=== PATIENT | male | born 1960 | race Caucasian/White ===

== ENCOUNTER 2019-02-25 03:05 | Inpatient (IN) ==
[2019-02-25] MEDS ORDERED: SOLU-MEDROL IV ONE (03:21)
[2019-02-25] MEDS ORDERED: ALBUTEROL NEB INH ONE (03:21)
--- NOTE | 2019-02-25 03:34 | PROVIDER DOCUMENTATION ---
HPI-General Adult - General Stated Complaint: RESP. DISTRESS Time Seen by Provider: 02/25/19 03:20 Source: patient, EMS Allergies/Adverse Reactions: Patient Allergies Allergy/AdvReac Type Severity Reaction Status Date / Time No Known Allergies Allergy Verified 01/16/18 07:36 Home Medications: Home Medication List Medication Instructions Recorded Confirmed Last Taken Type Folic Acid 1 mg PO DAILY #30 tab 02/19/18 Unknown Rx Multivit,Fe,Ca,FA & Min [Thera M 1 ea PO DAILY #30 tab 02/19/18 Unknown Rx Plus] Nicotine Patch [Nicoderm Patch] 21 mg TD DAILY #30 patch.td24 02/19/18 Unknown Rx Pantoprazole Sodium [Protonix] 40 mg PO ACB #30 tablet. 02/19/18 Unknown Rx Risperidone [Risperdal] 1 mg PO BID #60 tab 02/19/18 Unknown Rx Thiamine [Vitamin B-1] 100 mg PO DAILY #30 tab 02/19/18 Unknown Rx - History of Present Illness -Gen Adult Nature of Presenting Problems: 58 y/o M presents to the ED with EMS complaining of dyspnea. Pt is very poor historian and states "I don't know" to nearly all questions. Reports dyspnea with cough and some chest heaviness. Unknown if pt has had fever, emesis, and is unable to characterize how long he has had symptoms. EMS reported that pt was very wheezy on their arrival but that this improved with a nebulized tx. Review of Systems - Adult - REVIEW OF SYSTEMS - ADULT Constitutional: denies: chills, fever Eyes: reports: no symptoms reported Ears, Nose, Mouth & Throat: reports: no symptoms reported Cardiovascular: reports: chest pain Respiratory: reports: shortness of breath Gastrointestinal: reports: no symptoms reported Genitourinary: reports: no symptoms reported Musculoskeletal: reports: no symptoms reported Integumentary: reports: no symptoms reported Neurological: reports: no symptoms reported Psychiatric: reports: no symptoms reported Endocrine: reports: no symptoms reported Hematologic/Lymphatic: reports: no symptoms reported Allergic/Immunologic: reports: no symptoms reported All Other Systems: Reviewed and Negative Past History - Adult - PAST MEDICAL HISTORY-ADULT Review of Records: reports: Old Records Reviewed, Nursing Assessment Review, Medications Reviewed, Social history reviewed & non-contributory. Major Childhood Illnesses: reports: denies history Cardiovascular: reports: denies history Respiratory: reports: denies history Gastrointestinal: reports: denies history Obstetrical/Gynecological: reports: denies history Genitourinary: reports: denies history Musculoskeletal: reports: chronic pain Neurological: reports: denies history Psychiatric: reports: anxiety Endocrine/Immune: reports: denies history Other Conditions: reports: denies history - PRIOR SURGERIES/PROCEDURES Surgical/Procedure History: reports: tonsillectomy, appendectomy - IMMUNIZATION STATUS Childhood Immunizations: See Nurse Assessment Flu Vaccine: See Nurse Assessment - FAMILY HISTORY Family History: reviewed, not pertinent Physical Exam-General - PHYSICAL EXAM-ADULT Initial Vital Signs Reviewed: Yes - CONSTITUTIONAL General Appearance: alert, mild distress, other (chronically ill appearing) - EYES Eyes: PERRL/EOMI, pink conjunctivae - HEAD, EARS, NOSE, MOUTH & THROAT HENMT: normocephalic/atraumatic, moist mucous membranes, normal ENT inspection - NECK Neck: non-tender, full range of motion, supple - RESPIRATORY Respiratory: chest non-tender, normal breath sounds, wheezing (slight BL expiratory wheezes) - CARDIOVASCULAR Cardiovascular: normal peripheral pulses, regular rate, rhythm, no edema, no JVD - GASTROINTESTINAL (ABDOMEN) Abdominal Exam: non tender, soft - MUSCULOSKELETAL Back Exam: normal inspection, no CVA tenderness, no vertebral tenderness Extremity: normal range of motion, non-tender, no pedal edema - SKIN Integumentary: normal color, normal turgor, warm/dry - NEUROLOGIC Neurologic: grossly normal, no motor/sensory deficits - PSYCHIATRIC Psych/Mental Status: oriented x 3 Progress - PLAN OF CARE/RESULTS Progress/Plan/Lab Results: Orders Category Date Time Status IV Insertion ORDERED Care 02/25/19 03:21 Active Warming Carlin DIRECTED Care 02/25/19 03:21 Active CHEST-1 VIEW [RAD] Stat Exams 02/25/19 03:21 Ordered BASIC METABOLIC PANEL [CHEM] Stat Lab 02/25/19 03:21 Uncollected CBC WITH DIFF [HEME] Stat Lab 02/25/19 03:21 Uncollected PRO B-NATRIURETIC PEPTIDE Stat Lab 02/25/19 03:21 Uncollected TROPONIN T Stat Lab 02/25/19 03:21 Uncollected Albuterol [Albuterol Neb] Med 02/25/19 03:21 Discontinued 2.5 mg INH NOW ONE Methylprednisolone Sod Succ [Solu-Medrol] Med 02/25/19 03:21 Discontinued 125 mg IV NOW ONE Aerosol Treatments Routine Oth 02/25/19 03:21 Active Aerosol Treatments Stat Ot 02/25/19 03:21 Active dyspnea and chest pain, pt very cold on arrival with axillary temp of 93. Immediately warmed and will treat and further evaluate for causes including but not limited to ACS, bronchospasm, pna, ptx, chf, pe, Result Diagrams: 02/25/19 03:34 02/25/19 04:19 - REASSESSMENT Reassessment #1 Status: worsening (Soon after arrival pt became more confused, talking about smelling gas, and counting out numbness will further evaluate pt's AMS) Reassessment #2 Status: improving (confusion improving. elevated BNP with hyponatremia and acute renal failure. Gently hydrated with ns and treated with lasix and will admit for further evaluation and treatment. Discussed case with Dr. Sainz, hospitalist, who will see and admit pt.) - EKG 1 Time of EKG reading by physician:: 03:17 EKG Read and Signed by:: Aiyana Fairchild EKG Interpretation (*Must complete 3 of following elements*): Normal (Sinus Rhythm, rate 83, no acute st changes, normal axis and intervals) - XRAY 1 XRAY Study: Chest Impression: Normal - CT/MRI 1 CT Study: Head Impression: Normal Departure - Departure Date of Disposition Decision: 02/25/19 Time of Disposition Decision: 06:04 DIAGNOSIS: Hyponatremia Dyspnea Qualifiers: Dyspnea type: unspecified Qualified Code(s): R06.00 - Dyspnea, unspecified Altered mental state Qualifiers: Altered mental status type: unspecified Qualified Code(s): R41.82 - Altered mental status, unspecified Acute renal failure Qualifiers: Acute renal failure type: unspecified Qualified Code(s): N17.9 - Acute kidney failure, unspecified Congestive heart failure Qualifiers: Heart failure type: unspecified Heart failure chronicity: unspecified Qualified Code(s): I50.9 - Heart failure, unspecified Disposition: ADMITTED INPATIENT 09 Certified Medical Emergency: Emergent Condition: Fair Referrals and Follow-Ups: UNKNOWN, [Primary Care Provider] - - Critical Care Note This patient required my direct & personal management of CC.: No Attestation - Physician/ GABRIELLE Attestation Patient care was provided by Advanced Practice Provider:: No The physician spent face to face time with patient:: Yes Advanced Practice Provider documentation review:: Supervising physician onsite and consulted in the evaluation and care of this patient. The physician did have a face to face encounter with the patient.
[2019-02-25 03:57] LABS: BASO# 0.07 X1000 (0.0-0.2); BASO% 0.6 % (0.0-0.8); EOS# 0.01 X1000 (0.0-0.7); EOS% 0.1 % (0.0-10.0); HEMATOCRIT 45.1 % (42.0-52.0); HEMOGLOBIN 14.9 g/dL (14.0-18.0); LYMPH# 1.96 X1000 (1.2-3.4); LYMPH% 16.2 % (20.5-51.1); MCH 33.7 PG (27-31); MONO# 1.04 X1000 (0.11-0.59); MONO% 8.6 % (1.7-9.3); MPV 12.2 FL (7.4-10.4); NEUT% 74.5 % (42.2-75.2); PLT 151 X1000 (130-400); RBC 4.42 XMIL (4.7-6.1); RDW 14.5 % (11.5-14.5); WBC 12.08 X1000 (4.8-10.8)
[2019-02-25 04:47] LABS: UR AMPHETAMINES QUAL NONE DETECTED (NONE DETECT); UR BARBITUATES QUAL NONE DETECTED (NONE DETECT); UR BENZODIAZEPIN QUAL NONE DETECTED (NONE DETECT); UR CANNABINOIDS QUAL NONE DETECTED (NONE DETECT); UR COCAINE QUAL NONE DETECTED (NONE DETECT); UR METHADONE QUAL NONE DETECTED (NONE DETECT); UR OPIATES QUAL NONE DETECTED (NONE DETECT); UR OXYCODONE QUAL NONE DETECTED (NONE DETECT); UR PCP QUAL NONE DETECTED (NONE DETECT)
[2019-02-25 05:09] LABS: ALB/GLOB RATIO 0.9; ALBUMIN 3.8 g/dL (3.5-5.0); CALCIUM 9.4 mg/dL (8.8-10.2); CREATININE 2.2 mg/dL (0.7-1.2); POTASSIUM 4.8 mmol/L (3.5-5.1); TOTAL BILIRUBIN 3.58 mg/dL (0.20-1.00); TOTAL PROTEIN 7.8 g/dL (6.3-8.3)
[2019-02-25] MEDS ORDERED: LASIX IV ONE (05:15)
[2019-02-25] MEDS ORDERED: NS 500 ML IV ONE (05:16)
[2019-02-25 05:34] LABS: URINE SOURCE CATH
[2019-02-25 06:17] LABS: BILIRUBIN URINE SMALL (NEGATIVE); BLOOD URINE NEGATIVE (NEGATIVE); COLOR ORANGE; GLUCOSE URINE NEGATIVE (NEGATIVE); KETONE URINE TRACE mg/dL (NEGATIVE); LEUKOCYTES URINE NEGATIVE (NEGATIVE); NITRITE URINE NEGATIVE (NEGATIVE); PROTEIN URINE TRACE mg/dL (NEGATIVE); SP GRAVITY URINE 1.021; TURBIDITY URINE CLEAR (CLEAR); UROBILINOGEN URINE 6 mg/dL (NORMAL)
[2019-02-25 06:18] LABS: UR EPITHELIAL CELLS <10 /HPF (<10); URINE BACTERIA NEGATIVE /HPF; URINE RBC <10 /HPF (<10); URINE WBC <10 /HPF (<10)
--- NOTE | 2019-02-25 07:28 | Diag Imaging Result Doc PS360 ---
CHEST-1 VIEW - 02/25/2019 INDICATION: dyspnea COMPARISON: 01/27/2018 FINDINGS: There is some ill-defined infiltrate in the lingula. Heart size is normal. No pneumothorax or pleural effusion. IMPRESSION: Lingular infiltrate/pneumonia. Recommend treatment and follow-up until clear. Electronically signed by Edwin Layne 02/25/2019 7:25 AM
--- NOTE | 2019-02-25 07:31 | Diag Imaging Result Doc PS360 ---
CT HEAD W/O CONTRAST - 02/25/2019 INDICATION: AMS COMPARISON: 02/17/2018 FINDINGS: There is a stable old lacunar in the central rich. The ventricles and sulci are otherwise normal in size and contour. No intracranial mass or hemorrhage. The skull is intact. The sinuses are clear. IMPRESSION: No acute disease or change from prior. This exam was performed using automated exposure control, adjustment of mA or kV according to patient size, and/or use of iterative reconstruction technique Electronically signed by Edwin Layne 02/25/2019 7:28 AM
[2019-02-25] MEDS ORDERED: EPINEPHRINE SYRINGE ONE (07:40)
[2019-02-25] MEDS ORDERED: ATROPINE SYRINGE ONE (07:40)
[2019-02-25] MEDS ORDERED: NS ONE (07:40)
[2019-02-25] MEDS ORDERED: NS 1,000 ML IV SCH ×2 (07:45→08:00)
[2019-02-25] MEDS ORDERED: ROCEPHIN 1 GM in NS 50 ML IV SCH (07:45)
[2019-02-25] MEDS ORDERED: AMIDATE ONE (07:55)
[2019-02-25] MEDS ORDERED: QUELICIN ONE (07:55)
[2019-02-25] MEDS ORDERED: MAXIPIME 2 GM in NS 100 ML IV ONE (08:00)
[2019-02-25] MEDS ORDERED: VANCOMYCIN IV PER PHARMACY MISC SCH (08:00)
[2019-02-25] MEDS ORDERED: EPINEPHRINE 4 MG in NS 250 ML IV SCH ×2 (08:15→09:00)
[2019-02-25] MEDS ORDERED: DUONEB (A & A) INH PRN (08:21)
[2019-02-25] MEDS ORDERED: LEVOPHED 8 MG in D5 1/2 NS 250 ML IV SCH ×2 (08:21→09:30)
[2019-02-25] MEDS ORDERED: DOPAMINE 800 MG/D5W 800 MG/500 ML IV.SOLN IV SCH (08:21)
--- NOTE | 2019-02-25 08:25 | Diag Imaging Result Doc PS360 ---
CHEST-PORTABLE - 02/25/2019 8:17 AM INDICATION: TUBE PLACEMENT COMPARISON: 3:43 AM FINDINGS: There is an endotracheal tube in good position at T4. Lung volumes are lower. There is worsening infiltrate in the lingula. There is also new infiltrate in the right lung base. Pulmonary vascularity is distended. Heart size remains top normal. IMPRESSION: Good endotracheal tube placement. New pulmonary vascular congestion. Worsening bilateral infiltrates. Electronically signed by Edwin Layne 02/25/2019 8:23 AM
[2019-02-25] MEDS ORDERED: DIPRIVAN 1% 1,000 MG/100 ML BOTTLE IV SCH ×2 (08:30)
[2019-02-25] MEDS ORDERED: NS 1,000 ML IV ONE ×2 (08:36→13:06)
[2019-02-25 08:40] LABS: BLOOD TYPE ARTERIAL; SAMPLE BLOOD
[2019-02-25 08:41] LABS: ALLEN TEST YES; BE -28.6 mmoll (-3.0-3.0); HCO3-(ACT) 2.6 mmoll (20.0-26.0); METHB 1.7 % (0.0-1.5); O2HB 97.7 % (95.0-99.0); PO2(98.6) 506 mmHg (60-100); SAO2 99.7 % (95.0-100.0); SRATE 16 BPM; THB 12.1 g/dL (11.5-17.4); TVOL 450 mL
[2019-02-25 08:43] LABS: PCO2(98.6) 18 mmHg (35-45); pH(98.6) 6.88 (7.35-7.45)
[2019-02-25 08:44] LABS: MODALITY VENTILATOR
[2019-02-25] MEDS ORDERED: SODIUM BICARBONATE 8.4% IV PUSH ONE ×2 (08:44→11:52)
[2019-02-25] MEDS ORDERED: SODIUM BICARBONATE 8.4% IV ONE (08:51)
--- NOTE | 2019-02-25 08:58 | EKG Report ---
Test Performed on : 02/25/2019 03:17:46 AM Test Reason : ED. No order in [place] Blood Pressure : / mmHG Vent. Rate : 083 BPM Atrial Rate : 083 BPM P-R Int : 134 ms QRS Dur : 104 ms QT Int : 434 ms P-R-T Axes : 040 014 061 degrees QTc Int : 509 ms Normal sinus rhythm. Prolonged QT Abnormal ECG When compared with ECG of 07-MAY-2016 16:55, QT has lengthened Unconfirmed Result
[2019-02-25] MEDS ORDERED: VANCOMYCIN 1,700 MG in NS 250 ML IV ONE (09:00)
[2019-02-25] MEDS: ZYVOX 600 MG/D5W 600 MG/300 ML IVPB IV SCH ×2 (09:45→21:17)
--- NOTE | 2019-02-25 10:10 | EKG Report ---
Test Performed on : 02/25/2019 08:07:29 AM Test Reason : CPR Blood Pressure : / mmHG Vent. Rate : 132 BPM Atrial Rate : 129 BPM P-R Int : 000 ms QRS Dur : 134 ms QT Int : 354 ms P-R-T Axes : 000 115 -12 degrees QTc Int : 524 ms Wide QRS tachycardia. Right axis deviation Nonspecific intraventricular block T wave abnormality, consider inferior ischemia Abnormal ECG No previous ECGs available Unconfirmed Result
--- NOTE | 2019-02-25 10:20 | Diag Imaging Result Doc PS360 ---
CHEST-PORTABLE - 02/25/2019 10:12 AM INDICATION: POST PROCEDURE COMPARISON: 8:17 AM FINDINGS: Stable endotracheal tube in good position. There is a new nasogastric tube in the stomach. Stable bilateral infiltrates left greater than right. Stable pulmonary vascular congestion. Heart size remains top normal. IMPRESSION: New nasogastric tube. Otherwise no change from prior. Electronically signed by Edwin Layne 02/25/2019 10:17 AM
--- NOTE | 2019-02-25 10:27 | HISTORY AND PHYSICAL ---
PRIMARY CARE PROVIDER: Unknown. CHIEF COMPLAINT: Per ED records, dyspnea. HISTORY OF PRESENT ILLNESS: Mr. Jeffrey is a 58-year-old male who carries a past medical history of alcoholism, hepatitis C, folic acid deficiency, tobacco dependence, who was brought in by EMS for dyspnea. At time of examination, patient was intubated, bradycardic and underwent a 4 minute code. They pushed atropine and epinephrine. His initial workup in the ED, the patient had gotten IV Lasix, a saline bolus and breathing treatment for wheezing which patient became bradycardic, intubated and coded. His chest x-ray did show pneumonia. We started him on broad-spectrum antibiotics. He was severely acidotic with a pH of 6, as well as septic with a lactate of 15.20, numerous electrolyte imbalances, acute on chronic kidney injury, and a serum alcohol level of 16. He has been assessed by Cardiology and will continue him in the ICU on Levophed and propofol drip. His heart rate was initially tachycardic after the code. He was also given an amp of bicarb and started on a bicarb drip. REVIEW OF SYSTEMS: Unable to obtain secondary to the patient being intubated. PAST MEDICAL HISTORY: 1. Alcohol abuse. 2. Tobacco abuse. 3. Hepatitis C. 4. COPD PAST SURGICAL HISTORY: 1. Appendectomy. 2. Tonsillectomy. FAMILY HISTORY: Unable to obtain due to altered mental status. ALLERGIES: No known drug allergies. HOME MEDICATIONS: Unable to obtain due to altered mental status. SOCIAL HISTORY: Unable to obtain due to altered mental status PHYSICAL EXAMINATION: VITAL SIGNS: Last temperature that was taken was upon admission, was 96.9 degrees, heart rate had been tachycardia he in the 110s. He bradied down to the 30s, was 130s after code. He is now back down to 108. His blood pressures had improved after epinephrine push; however, has now crept back down to the 80s. We have initiated him on a Levophed drip. GENERAL: Mr. Jeffrey is a severely unkept, ill-appearing, 58-year-old male who is lying on the stretcher, intubated, was being coded. HEENT: Atraumatic, normocephalic. Did not appreciate any corneal reflex. CARDIOVASCULAR: S1, S2 appreciated. He was tachycardic. No murmurs, gallops, rubs noted. RESPIRATORY: Lung sounds appear to be clear bilaterally. He was being bagged after intubation. Did not appreciate any rales, rhonchi, or wheezes. GASTROINTESTINAL: Flat, soft, nontender. Hypoactive bowel sounds 4 quadrants. EXTREMITIES: Were cool, bluish tint to the fingernails. GENITOURINARY: Foreskin turgor. NEUROLOGIC: Could not assess secondary to the patient becoming obtunded and having to be intubated. INITIAL DIAGNOSTIC DATA: From the ER. Chest x-ray done at 3:21 a.m. showed lingular infiltrate, pneumonia. Recommended treatment and follow-up until clear. Initial head CT showed no acute disease or change from prior. There was a stable old lacunar in the central rich. INITIAL LABORATORY DATA: White count of 12, an hemoglobin and hematocrit of 14 and 45, a platelet count of 151,000. A sodium of 121, a potassium of 4.8, carbon dioxide of 3, a BUN of 29, a creatinine of 2.2, blood glucose of 188. A T bilirubin of 3.58, AST of 86, ALT of 53, ammonia level of 68, [place] [address]. After checking ABG, he was acidotic with a pH of 6.8, CO2 18, an O2 of 506, base excess of -28.6 and a lactate of 15.2. Serum lactate was 15.7. Urinalysis was negative for any bacteria or nitrites. Toxicology screen was negative. His alcohol serum level was 16. ASSESSMENT AND PLAN: 1. Cardiopulmonary arrest. The patient was seen by in the ER. Will order an echocardiogram. 2. Acute hypoxemic respiratory failure. Likely secondary to pneumonia. The patient is on the ventilator. Will start IV antibiotics and bronchodilator therapy. Will consult with the shot dropper. 3. Severe anion gap metabolic acidosis. The patient has a profound lactic acidosis likely secondary to sepsis. Will start a bicarbonate drip and monitor the acid base status closely. Will consult the nurses' association counselor. 4. Septic shock. Blood, sputum and urine cultures have been obtained. The patient has received 3 liters of normal saline. Will start a levophed drip. Broad spectrum antibiotics have been started. 5. Bilateral pneumonia. Broad spectrum antibiotics have been ordered. Will consult with ID. 6. Acute kidney injury. Likely secondary to sepsis. Will check urine studies and continue with IV fluid resuscitation. 7. Hyponatremia. The patient is receiving IV fluid will check a urine osmolality and urine sodium. 8. Elevated liver function. The patient has hepatitis C. Will check an abdominal ultrasound. 9. Hyperammonemia. Will monitor closely. 10.Metabolic encephalopathy. Multifactorial. Monitor the neuro status closely. 11. Acute alcohol intoxication. Aware. 12. Hepatitis C. Aware. 13. Tobacco dependence. Aware. 14. GI prophylaxis. Will start IV nexium. 15. DVT prophylaxis. Will start SCDs. 16. Further recommendations to follow physician evaluation, laboratory and diagnostic data. TIME SPENT: Critical care time greater than 60 minutes. Dictated by MARISSA Zarate for Amara Lopez MD cc: Amara Lopez MD I performed a face to face encounter on the patient. I reviewed all labs and imaging on the patient. I agree with the H&P as dictated. is a 58 year old white male with a history of Hepatitis C, COPD, and alcohol dependence who was brought to the ER via EMS with a chief complaint of dyspnea and confusion. Upon arrival to the ER, the patient was noted to be hypothermic, hypoxic, and hallucinating. A chest x ray was done that revealed pneumonia. The patient was given 125mg of solumedrol, an albuterol nebulizer treatment, 40mg of IV lasix and 1 liter of normal saline. I was called to the ER at 7:45am. Upon my arrival, the patient was in the process of being intubated. Shortly after the patient was intubated he was noted to be in PEA. A code was called and ACLS protocol was initiated. The patient was coded for around 2 minutes and return of spontaneous circulation occurred. IV fluid, blood, sputum, and urine cultures as well as broad spectrum antibiotics were ordered. A chest x ray was ordered to confirm ET tube placement and an order was placed for an ICU bed. The manager mail sales donor recruitment representative was notified about the patient and he came to the ER and assessed the patient. Will also consult with the shot dropper and nurses' association counselor for assistance with management of the patient's multiple medical issues. The patient is critically ill with a high risk of mortality. MTDD
[2019-02-25 10:58] LABS: ALBUMIN 2.5 g/dL (3.5-5.0); CALCIUM 7.3 mg/dL (8.8-10.2); CREATININE 2.2 mg/dL (0.7-1.2); POTASSIUM 4.8 mmol/L (3.5-5.1)
[2019-02-25 11:15] LABS: CK-MB 13.89 ng/mL (0.0-5.0)
[2019-02-25 11:38] LABS: AMYLASE 256 U/L (20-200)
[2019-02-25 11:40] LABS: LIPASE 463 U/L (13-60)
[2019-02-25 11:44] LABS: ALLEN TEST YES; BE -24.3 mmoll (-3.0-3.0); BLOOD TYPE ARTERIAL; METHB 1.3 % (0.0-1.5); O2(CT) 19.1 mL/dL (15.0-23.0); O2HB 97.7 % (95.0-99.0); PO2(98.6) 416 mmHg (60-100); SAMPLE BLOOD; SAO2 99.7 % (95.0-100.0); SRATE 16 BPM; THB 13.1 g/dL (11.5-17.4); TVOL 450 mL
[2019-02-25 11:46] LABS: MODALITY VENTILATOR; PCO2(98.6) 18 mmHg (35-45); pH(98.6) 7.03 (7.35-7.45)
[2019-02-25] MEDS: DUONEB (A & A) INH SCH ×4 (11:46→22:55)
[2019-02-25] MEDS: SODIUM BICARBONATE 8.4% 150 MEQ in D5W 1,000 ML IV SCH ×2 (11:54→18:16)
[2019-02-25] MEDS ORDERED: ATIVAN IV PRN ×2 (12:45→12:52)
[2019-02-25] MEDS ORDERED: HEPARIN SUBQ SCH (13:00)
[2019-02-25 13:05] LABS: ACETAMINOPHEN 1.8 ug/mL (10-30); SALICYLATES < 3.00 mg/dL (3-10)
--- NOTE | 2019-02-25 13:10 | CONSULTATION ---
DATE OF CONSULTATION: 02/25/2019 IMPRESSION: 1. Status post cardiopulmonary arrest. The patient essentially developed agonal respirations, and required intubation after which he demonstrated bradycardia. His heart rate improved with CPR assistance, but he did not require cardioversion/defibrillation. Suspect more likely respiratory arrest leading to cardiac arrest. 2. High anion gap metabolic acidosis. This could be lactic acidosis from shock possibly septic shock, but cannot exclude ethylene glycol or methanol given high osmolar gap. 3. Chronic alcoholism. 4. History of hepatitis C. 5. Acute renal dysfunction. 6. Possible pneumonia. RECOMMENDATIONS: 1. Supportive care with ventilator. 2. Levophed for blood pressure support. 3. Check ethylene glycol level. 4. Correct acidosis as best possible. 5. Follow up echocardiography result. HISTORY: This 58-year-old white male with past history of alcoholism, hepatitis C and chronic smoking was brought to the emergency room for shortness of breath. While in the emergency room being evaluated, he developed agonal respirations and required intubation. He subsequently became bradycardiac with hypotension. CPR was initiated. He is given atropine and epinephrine, and his heart rate came up along with his blood pressure. He still remains relatively hypotensive. The patient had received intravenous Lasix in the emergency room previously because of possible congestive heart failure. He subsequently received intravenous saline bolus as well as parenteral bicarbonate. He is presently sedated and on ventilator not able give any significant history. Review of records indicates previous significant problems with alcoholism as well as tendency for encephalopathy. PAST MEDICAL HISTORY: 1. Alcoholism. 2. Hepatitis C. PAST SURGICAL HISTORY: Includes appendectomy and tonsillectomy. MEDICATIONS PRIOR TO ADMISSION: Not known. ALLERGIES: No known drug allergies. SOCIAL HISTORY: He has history of alcoholism. He had been homeless for some period of time, but may be currently living with his brother. He has history of chronic cigarette use. FAMILY HISTORY: Noncontributory. REVIEW OF SYSTEMS: Not obtainable given patient's condition. PHYSICAL EXAMINATION: General: This is an unkempt looking middle-aged male who appears older than stated age sedated and on ventilator. Vital signs: Blood pressure 85/41, heart rate 94, and oxygen saturation 100%. HEENT: Mucous membranes are dry. Neck: Supple without discernible jugular distention. No carotid bruits. Chest: Auscultation of the chest reveals coarse breath sounds bilaterally anteriorly. Cardiac: Reveals a regular rate and rhythm without appreciable murmur or gallop. Abdomen: Soft. Bowel sounds audible. Extremities: Without edema. PERTINENT DATA: Twelve lead EKG obtained on presentation demonstrates normal sinus rhythm and prolonged QT interval. LABORATORY DATA: Includes a white blood cell count of 12.08, hematocrit 45.1, hemoglobin 14.9, and platelet count 151,000. Initial arterial blood gas with a pH of 6.88, pCO2 of 18, PO2 of 506 with a bicarb of 2.6 and a lactate of 15.2. Followup arterial blood gas with pH 7.03, pCO2 of 18, PO2 416 with a serum bicarbonate of 6.0. Sodium 126, potassium 4.8, chloride 91, carbon dioxide 5, BUN 30, creatinine 2.2, and glucose 176. Calculated serum osmolality 264. Measured serum osmolality 292, bilirubin 3.58. AST 86, ALT 53, ammonia 85. CPK 683. CPK MB 13.89, CPK MB index 2.0. Troponin T 0.021, albumin 2.5, amylase 256, lipase 463. Lactate greater than 15.7. Anion gap 30. Alcohol level 16. Urine drug screen negative. Acetone level negative. Initial chest x- ray reviewed. There is questionable infiltrate in the left lingula. cc: Baljinder Alex MD
--- NOTE | 2019-02-25 13:20 | INFECTIOUS DISEASE CONSULT REP ---
DATE: 02/25/2019 CONCLUSION: The patient has a bilateral pneumonia. RECOMMENDATIONS: I agree with treating the patient with Zyvox and cefepime pending further studies. DISCUSSION: The patient is intubated and, thus, unable to give a history. No family member is present. According to the record in the computer, the patient was admitted to the hospital with dyspnea. The patient became bradycardic. He was intubated and coded. His laboratory studies thus far show a CBC with a white count of 12,080, hemoglobin 14.9, and platelet count 151,000. Blood gases show a pH of 7.03, PO2 of 416, and a pCO2 of 18. Creatinine is 2.2. GFR is 31. AST is 56, bilirubin is 3.58. CK is 683. Urinalysis was negative for white blood cells and bacteria. Chest x-ray shows bilateral infiltrates. Drug screen was negative. Blood cultures are pending. PAST MEDICAL HISTORY: Positive for alcohol abuse, tobacco abuse, and hepatitis C. PAST SURGICAL HISTORY: Positive for appendectomy and tonsillectomy. FAMILY HISTORY: Unknown. DRUG ALLERGIES: None known. HOME MEDICATIONS: Consist of vitamins and minerals, nicotine patch, Protonix, Risperdal, and vitamin B1. PHYSICAL EXAMINATION: Vital Signs: Temperature is 97.8 degrees, pulse 101, respirations 14, blood pressure 96/37. General: This is an ill-appearing, malnourished-appearing, middle-aged male. He is intubated. He is obtunded. Head, Eyes, Ears, Nose, and Throat: The patient has an orotracheal tube in place and a nasogastric tube in place. Right eye is slightly open. The other eye is closed. No drainage is noted from the nose or ears. Neck: No meningismus. Lungs: Clear to auscultation. Cardiovascular: Heart rate is regular and rapid. Abdomen: Soft and not tender. Neurologic: The patient is obtunded. He did not respond to verbal stimuli. There was no tremor. Integument: No rash noted. Thank you for the consult. cc: Edgar Hdez MD
[2019-02-25] MEDS ORDERED: D5W IV ONE ×3 (15:00→20:00)
[2019-02-25] MEDS ORDERED: ACETADOTE IV ONE ×3 (15:00→20:00)
--- NOTE | 2019-02-25 15:17 | NEPHROLOGY CONSULTATION ---
DATE: 02/25/2019 REASON FOR ADMISSION: Increased work of breathing. REASON FOR CONSULT: Acute kidney injury with severe lactic acidosis, metabolic acidosis, status post cardiac arrest. CONSULTING PHYSICIAN: Dr. Amara Lopez per MARISSA Zarate. HISTORY OF PRESENT ILLNESS: Mr. Jeffrey is a 58-year-old white male who arrived at [facility] Emergency Department this a.m., approximately 4:30, for increased dyspnea per EMS. Approximately 2 to 3 hours later, while they were working on the patient he had respiratory-cardiac arrest. He was bradycardic after a dose of lasix. He underwent a 4 minute code. Atropine and epinephrine were pushed. He was given Lasix and a saline bolus prior to this episode. Chest x- ray did show that he had pneumonia. He was started on broad-spectrum antibiotics of Maxipime and Zyvox. The patient's BUN is 30 with a creatinine of 2.2. Noted baseline creatinine of 0.9 approximately 1 year ago. The patient was severely acidotic with a pH of 6, lactate of 15.2, CO2 of 5, anion gap of 30. There is no family member at the bedside. The patient was transferred to ICU. He remains on Levophed, propofol, and sodium bicarbonate drip. After his arrival to ICU he was given 2 amps of sodium bicarbonate before an IV drip was started. ABGs were rechecked, now with a pH of 7.0. He is currently intubated, nonresponsive, remains on propofol with ventilatory and pressor support. PAST MEDICAL HISTORY: Documented on chart of alcohol abuse, hepatitis C, tobacco abuse. PAST SURGICAL HISTORY: Appendectomy, tonsillectomy. FAMILY HISTORY: Unknown. ALLERGIES: No known drug allergies listed. HOME MEDICATIONS: Medications yet to be reconciled. SOCIAL HISTORY: Unknown. Previous documentation states that he is living in house with his brother. He came in covered in fecal matter, severely unkempt, appearance of malnutrition, very thin in appearance. REVIEW OF SYSTEMS: Unable to obtain a review of systems. Most obtained per chart from the ER. VITAL SIGNS: The patient's current vital signs, temperature 91.8 degrees, blood pressure 96/37, heart rate is 101, respirations are 14, ventilator dependent. LABS: Sodium is 126, potassium 4.8, chloride 91, CO2 5, BUN 30, creatinine 2.2, glucose 176. His anion gap is 30. His calcium is 7.3, phosphorus 7, albumin 2.5. White 12, hemoglobin 8, hematocrit 45.1, platelet count 151,000. His ammonia level is 85. He has a serum alcohol level of 16.1. Plasma lactate of 15.1. Acetone is negative. Salicylates are less than 3. Acetaminophen is 1.8. Ethylene glycol and methanol levels are still pending. ABGs, pH 7.03, CO2 18, PO2 416, bicarb 6 on 100%. He has positive cardiac enzymes. Dupont catheter is in place, 600 mL documented out with 400 to Dupont catheter, 200 of NG drainage. PHYSICAL EXAMINATION: General: This is a 58-year-old, ill-appearing, white male. He remains unresponsive to tactile stimuli. Skin: Warm and dry. HEENT: Normocephalic, atraumatic. Conjunctiva is pale. Pupils are restricted, sluggish to react. Neck: Supple. Trachea midline. No JVD. Cardiovascular: S1, S2 noted. He is tachycardic. Unable to appreciate any murmur or gallop. No rub appreciated. Lungs: Clear anteriorly. He remains intubated with ventilatory support. Abdomen: This is flat, nontender. Hypoactive bowel sounds. NG tube remains to low intermittent suction. Noted coffee-ground material that is in the tubing. Genitourinary: Dupont catheter is in place. Integumentary: Patient has bruising noted to the left groin. He has bruising to the right groin with a CVL. Some ecchymosis with bruising noted to the right IJ. Neurological: As mentioned above. The patient is obtunded, no response, intubated with sedation. ASSESSMENT AND PLAN: 1. Acute kidney injury. This is multifactorial. Patient appears to be septic, hypotensive, status post code. We will check his urine electrolytes and renal ultrasound. Continue to monitor his I's and O's. At this point he does continue to make urine. Ventilatory and pressor support. 2. Severe acidosis. Modest Osmolal gap but (+) ethenol. So far his plasma lactate is at 15.1. Serum alcohol is 16.1. Acetaminophen negative. Salicylates negative. Acetone negative. Ethylene glycol and methanol are still pending. He has been given 2 amps of sodium bicarbonate. He is currently on a bicarbonate drip with 3 amps at 125 mL an hour. 3. Electrolytes. The patient is severely hyponatremic. Sodium of 126. He continues with a sodium bicarbonate drip. We will continue to monitor and evaluate. Given NS bolus per sepsis protocol. 4. Anemia. This is actually in target. 5. Sepsis. Patient is currently on Zyvox and Maxipime. Dr. Hdez is following. 6. Respiratory failure, status post respiratory-cardiac arrest. This is being followed by Dr. Sousa and Cardiology. 7. Known hepatitis C. Liver enzymes are being evaluated. Ammonia level is elevated. Followed by the primary care. I would like to thank you for allowing us to follow with this patient. Dictated by MARISSA Morales for Nestor Pike MD Face to face encounter, data reviewed, discussed with Brennon Fay on 02/25/19. I agree with the above assessment and plan of care. cc: MARISSA Morales MD [facility]
--- NOTE | 2019-02-25 15:32 | ECHO REPORT ---
ORDER DATE: 02/25/2019 INDICATION: Cardiac arrest. FINDINGS: 1. The right atrium appears normal in size. 2. Trace tricuspid regurgitation. RV systolic pressure of 37. 3. Normal RV size and systolic function. 4. No significant pulmonic insufficiency. 5. Normal left atrial size at 3.3 cm. 6. No mitral valve prolapse. Trace mitral regurgitation. 7. Normal LV size, end-diastolic dimension of 4.4. Normal wall thicknesses with a posterior and interventricular septal wall thickness of 0.9 and 1.0 cm respectively. Normal LV systolic function. Estimated EF is 55%. There are no obvious segmental wall motion abnormalities, but the inferior wall is difficult to visualize on some views. 8. The aortic valve opens well, it is trileaflet. No evidence of stenosis or insufficiency. 9. The aorta appears normal in visualized segments. 10. No pericardial effusion identified. cc: Mathew Vivas MD
[2019-02-25] MEDS: ATIVAN 20 MG in NS 190 ML IV SCH ×2 (16:00→21:00)
--- NOTE | 2019-02-25 16:13 | Diag Imaging Result Doc PS360 ---
EXAM: US ABDOMEN-COMPLETE INDICATION: elevated lfts and renal failure COMPARISON: 10/17/2011 FINDINGS: Note that this study is somewhat limited as the patient could not be positioned ideally due to sedation. There is a small amount of echogenic sludge layering in the gallbladder lumen. No shadowing gallstones are identified. There is no evidence of gallbladder wall thickening or pericholecystic fluid. The common bile duct is normal in diameter. The liver echotexture is diffusely increased suggesting hepatic steatosis. No discrete hepatic mass is identified. Portal venous flow is hepatopetal. The pancreas is obscured by bowel gas. The aorta and IVC are partially obscured. The visualized portions are unremarkable. The spleen is partially obscured. The visualized portion is unremarkable. The kidneys are grossly unremarkable. IMPRESSION: 1.Echogenic sludge layering in the gallbladder lumen but no gallstones identified. 2.Suggestion of hepatic steatosis. Electronically signed by Chris Parry 02/25/2019 4:10 PM
--- NOTE | 2019-02-25 16:25 | CONSULTATION ---
DELETED!!! Dictated by MARISSA Murray for Aureliano Sousa MD cc: MARISSA Murray MD [facility]
[2019-02-25 16:32] LABS: URINE SOURCE CATH
[2019-02-25 16:42] LABS: BILIRUBIN URINE NEGATIVE (NEGATIVE); BLOOD URINE MODERATE (NEGATIVE); COLOR YELLOW; GLUCOSE URINE 70 mg/dL (NEGATIVE); KETONE URINE 10 mg/dL (NEGATIVE); LEUKOCYTES URINE NEGATIVE (NEGATIVE); NITRITE URINE NEGATIVE (NEGATIVE); PROTEIN URINE TRACE mg/dL (NEGATIVE); SP GRAVITY URINE 1.014; TURBIDITY URINE HAZY (CLEAR); UROBILINOGEN URINE NORMAL (NORMAL)
[2019-02-25 16:43] LABS: UR EPITHELIAL CELLS <10 /HPF (<10); URINE BACTERIA NEGATIVE /HPF; URINE RBC <10 /HPF (<10); URINE WBC <10 /HPF (<10)
[2019-02-25 16:55] LABS: UR CREAT RANDOM 52.2 mg/dL (14-26); UR PROT RANDOM 20.8 mg/dL
--- NOTE | 2019-02-25 17:19 | CONSULTATION ---
DATE OF CONSULTATION: 02/25/2019 REQUESTING PROVIDER: MARISSA Zarate REASON FOR CONSULTATION: Code, intubation, pneumonia. HISTORY OF PRESENT ILLNESS: This is a 58-year-old male with a medical history of alcoholism, hepatitis C, folic acid deficiency, tobacco dependence. He presented to the ER early this morning before 3:20 via EMS with dyspnea, cough, and some chest heaviness. This morning before 8am in the ER he apparently developed agonal respiration requiring intubation. Later he developed bradycardia and underwent a code for about 4 minutes. His initial chest x-ray in the ER showed lingular infiltrates or pneumonia. He has been admitted to the ICU for further evaluation and management. At the time of my examination, patient is still intubated. He is on Levophed and propofol drip. He apparently had hypothermia and is put on a warming blanket with current temperature of 93.6 degrees. There is no family at the bedside. All other information is obtained from the E-chart. PAST MEDICAL HISTORY: 1. Alcoholism. 2. Hepatitis C. 3. Folic acid deficiency. 4. Tobacco dependence. PAST SURGICAL HISTORY: 1. Appendectomy. 2. Tonsillectomy. FAMILY HISTORY: Unknown. SOCIAL HISTORY: Per the H&P from 01/14/2018, the patient smokes 1 pack per day since 19 years old. He drinks 12 beers a day. He has no illicit drug use. ALLERGIES: No known drug allergies. REVIEW OF SYSTEMS: Unable to be obtained. PHYSICAL EXAMINATION: Vital Signs: Temperature 93.6 degrees, blood pressure 95/44, pulse 99, respiratory rate 22, oxygen saturation 100% on assist control mechanical ventilator with spontaneous rate 16, FiO2 of 60%, tidal volume 450, and PEEP 5. General: Chronically ill- appearing, appears older than stated age, intubated with no acute distress at this time. HEENT: Atraumatic. Trachea midline. Eyes half open. No corneal reflex noted. ET tube in place. Mucous membranes pink and moist. Respiratory: Respirations even and unlabored. Clear to auscultation. Cardiovascular: Regular rate and rhythm. Gastrointestinal: Flat, soft. Bowel sounds present in all 4 quadrants. Extremities: Cool to touch. No pedal edema. Vascular: Diminished dorsalis pedis bilaterally. Neurologic: Sedated and nonresponsive. DIAGNOSTIC STUDIES: White blood cell 12.08, hemoglobin 14.9, hematocrit 45.1, platelet 151,000. Sodium 126, potassium 4.8, chloride 91, carbon dioxide 5, BUN 30, creatinine 2.2, glucose 176, ammonia 85, creatine kinase 683, CK-MB 13.89, amylase 256, lipase 463, and ProBNP 12,854. ABG: pH 7.03, pCO2 of 18, PO2 of 416, HCO3 of 6.0, base excess -24.3, oxyhemoglobin 97.7, and lactate 14.10. Chest x-ray showed new pulmonary vascular congestion and worsening bilateral infiltrates. ASSESSMENT: This is a 58-year-old male with a medical history of alcohol abuse, hepatitis C, folic acid deficiency, tobacco dependence. He has been admitted to the intensive care unit after a cardiac arrest and about a 4-minute code with acute respiratory failure status post cardiac arrest, severe sepsis, and shock, pneumonia, acute on chronic kidney disease, and severe metabolic acidosis. 1. Acute respiratory failure requiring intubation. 2. Status post cardiopulmonary arrest. The code lasted about 4 minutes. He received 2 epinephrine and 1 atropine push per the H&P. 3. Sepsis with shock and metabolic acidosis. 4. Pneumonia. Bilateral. 5. Significantly elevated proBNP. 6. Acute on chronic kidney disease. 7. Suspected pancreatitis with elevated amylase and lipase. 8. Alcoholism. 9. Tobacco abuse. PLAN: 1. Continue assist control mechanical ventilator and will start weaning trials when appropriate. 2. Continue antibiotics per Dr. Hdez, pressors with fluid resuscitation as indicated, and bronchodilators. 3. Follow up with ABG, CBC, CMP, chest x-ray, sputum culture and blood culture. 4. Dr. Hdez, Dr. Alex, and Dr. Pike are on board. 5. Start education of smoking cessation later when appropriate. 6. Continue GI and DVT prophylaxes. Thank you for the courtesy of this consult. Dictated by MARISSA Murray for Aureliano Sousa MD cc: MARISSA Murray MD [facility]
[2019-02-25 18:12] LABS: ALB/GLOB RATIO 0.9; ALBUMIN 2.6 g/dL (3.5-5.0); CREATININE 1.8 mg/dL (0.7-1.2); POTASSIUM 4.2 mmol/L (3.5-5.1); TOTAL BILIRUBIN 3.29 mg/dL (0.20-1.00); TOTAL PROTEIN 5.6 g/dL (6.3-8.3)
[2019-02-25] MEDS ORDERED: CALCIUM GLUCONATE 1 GM in NS 50 ML IV ONE (18:22)
[2019-02-25] MEDS: LEVOPHED 8 MG in D5 1/2 NS 250 ML IV SCH (20:00)
[2019-02-25] MEDS: MORPHINE IV PRN (20:05)
[2019-02-25] MEDS ORDERED: HUMULIN R SUBQ SCH ×2 (21:00→21:53)
[2019-02-25] MEDS: MAXIPIME 1 GM in NS 50 ML IV SCH (21:16)
[2019-02-25] MEDS: SODIUM BICARBONATE 8.4% 150 MEQ in STERILE WATER INJ. 1,000 ML IV SCH (23:15)
[2019-02-26] MEDS: LEVOPHED 8 MG in D5 1/2 NS 250 ML IV SCH ×3 (00:09→19:55)
[2019-02-26] MEDS ORDERED: HUMULIN R SUBQ ONE ×2 (00:19→02:33)
[2019-02-26] MEDS: HUMULIN R SUBQ SCH ×7 (00:32→23:51)
[2019-02-26] MEDS: DUONEB (A & A) INH SCH ×6 (03:49→23:23)
[2019-02-26] MEDS: ATIVAN 20 MG in NS 190 ML IV SCH ×3 (04:12→19:54)
[2019-02-26 04:51] LABS: ALLEN TEST YES; BE -3.1 mmoll (-3.0-3.0); BLOOD TYPE ARTERIAL; HCO3-(ACT) 22.3 mmoll (20.0-26.0); METHB 1.3 % (0.0-1.5); O2HB 91.9 % (95.0-99.0); PCO2(98.6) 35 mmHg (35-45); PO2(98.6) 67 mmHg (60-100); SAMPLE BLOOD; SAO2 94.5 % (95.0-100.0); SRATE 16 BPM; THB 15.5 g/dL (11.5-17.4); TVOL 450 mL; pH(98.6) 7.39 (7.35-7.45)
[2019-02-26 04:53] LABS: MODALITY VENTILATOR
[2019-02-26 06:10] LABS: INR 1.99
[2019-02-26 06:12] LABS: HEMOGLOBIN A1C 4.9 % (4.8-6.0)
[2019-02-26 06:20] LABS: BASO# 0.42 X1000 (0.0-0.2); HEMOGLOBIN 12.2 g/dL (14.0-18.0); IMM GRAN# 0.04 X1000 (0.0-0.04); IMM GRAN% 0.3 % (0.0-0.5); LYMPH# 1.97 X1000 (1.2-3.4); LYMPH% 14.2 % (20.5-51.1); MCH 33.2 PG (27-31); MCHC 34.9 g/dL (33-37); MCV 95.1 FL (81-99); MONO# 0.51 X1000 (0.11-0.59); MONO% 3.7 % (1.7-9.3); MPV 11.4 FL (7.4-10.4); NEUT% 78.8 % (42.2-75.2); PLT 111 X1000 (130-400); RBC 3.68 XMIL (4.7-6.1); RDW 13.7 % (11.5-14.5); WBC 13.84 X1000 (4.8-10.8)
[2019-02-26 06:37] LABS: ALB/GLOB RATIO 0.9; ALBUMIN 2.6 g/dL (3.5-5.0); DIRECT BILIRUBIN 1.9 mg/dL (0.00-0.20); TOTAL BILIRUBIN 2.85 mg/dL (0.20-1.00); TOTAL PROTEIN 5.6 g/dL (6.3-8.3)
--- NOTE | 2019-02-26 06:40 | Diag Imaging Result Doc PS360 ---
CHEST-PORTABLE - 02/26/2019 INDICATION: Pneumonia COMPARISON: 02/25/2019 FINDINGS: Support lines and tubes are stable. There has been some decrease in the density of the multilobar left midlung and basilar pneumonia. Heart size remains normal. No large pleural effusion. Stable faint infiltrate in the right lung base. IMPRESSION: Slight improvement in the multilobar left-sided pneumonia. Electronically signed by Edwin Layne 02/26/2019 6:38 AM
[2019-02-26] MEDS ORDERED: NEXIUM IV SCH (07:00)
[2019-02-26] MEDS ORDERED: LANTUS INSULIN SUBQ ONE (07:41)
[2019-02-26] MEDS: SODIUM BICARBONATE 8.4% 150 MEQ in STERILE WATER INJ. 1,000 ML IV SCH ×2 (08:21→21:00)
[2019-02-26] MEDS: ZYVOX 600 MG/D5W 600 MG/300 ML IVPB IV SCH ×2 (08:23→21:00)
[2019-02-26] MEDS: SODIUM CHLORIDE 0.9% INJ SCH (08:23)
[2019-02-26] MEDS: MAXIPIME 1 GM in NS 50 ML IV SCH ×2 (08:23→20:59)
[2019-02-26] MEDS: NEXIUM IV SCH ×2 (08:23→20:59)
[2019-02-26] MEDS ORDERED: CALMOSEPTINE OINTMENT TOP PRN (09:06)
--- NOTE | 2019-02-26 09:31 | INFECTIOUS DISEASE PROGRESS NO ---
DATE: 02/26/2019 PRESENT ILLNESS: The patient has a bilateral pneumonia. MEDICATIONS: The patient is receiving a combination of cefepime and Zyvox. PHYSICAL EXAMINATION: Vital Signs: Temperature is 96 degrees, pulse 97, respirations 18, blood pressure is 102/51. General: This is a chronically ill-appearing middle-aged male. He is intubated and sedated. Head/eyes/ears/nose/throat: Patient has an orotracheal and orogastric tube in place. There is no drainage from the nose or ears. Neck: No stiffness. Lungs: Clear to auscultation. Cardiovascular: Heart rate is regular. Abdomen: Soft and nontender. Neurologic: The patient is obtunded; however, according to the nurse earlier today he sat up in bed on his own. Integument: No rash noted. LAB AND X-RAY: Chest x-ray shows improvement in the left lung pneumonia. Blood cultures are pending. Liver function studies remain elevated. Sputum grew a normal mamie. Arterial blood gases showed a pH of 7.39, a PO2 of 67, and a pCO2 of 35. Creatinine is 1.8, GFR is 39. ASSESSMENT AND PLAN: The patient has pneumonia. I plan to continue Zyvox and cefepime. COMORBIDITIES: Patient is an alcoholic. He smokes cigarettes and he has hepatitis C. He was found down at his house and it is hard to know how long he was out prior to being brought to the hospital. cc: Edgar Hdez MD
[2019-02-26 10:25] LABS: ACETAMINOPHEN < 1.2 ug/mL (10-30); AGAP 27; ALBUMIN 2.6 g/dL (3.5-5.0); BUN 23 mg/dL (8-22); CALCIUM 7.2 mg/dL (8.8-10.2); CHLORIDE 82 mmol/L (98-107); COSMO 265; CREATININE 1.4 mg/dL (0.7-1.2); ESTIMATED GFR 52; GLUCOSE 116 mg/dL (70-104); LIPASE 245 U/L (13-60); PHOSPHORUS 1.8 mg/dL (2.7-4.5); POTASSIUM 2.6 mmol/L (3.5-5.1); SODIUM 130 mmol/L (136-145); TCO2 21 mmol/L (25-35)
[2019-02-26] MEDS ORDERED: POTASSIUM PHOSPHATE 40 MMOL in NS 250 ML IV ONE (10:29)
[2019-02-26 12:00] LABS: HEPATITIS PROFILE ACUTE SEE COMMENTS
--- NOTE | 2019-02-26 13:37 | NEPHROLOGY PROGRESS NOTE ---
DATE: 02/26/2019 SUBJECTIVE: He is sedated on the ventilator. OBJECTIVE: Vital Signs: Blood pressure 103/51, heart rate 96, respirations 16, afebrile. Intake 5.1 L. Output 3.5 L. HEENT Exam: Sedated, unresponsive. Skin is icteric. Right conjunctiva is injected. Pupils equal. Oropharynx clear. Neck: Neck veins are not appreciated. Heart: Regular. Lungs: Equal. No crackles. Abdomen: Soft, flat, bowel sounds present. Extremities: 1+ edema. IMPRESSION: 1. Acute kidney injury. BUN and creatinine are improved with IV fluid resuscitation. 2. Electrolytes: Hypokalemia and hyponatremia. His hyponatremia is improved. His hypokalemia will be treated with IV resuscitation. 3. Metabolic acidosis. Secondary to lactic acidosis from sepsis. Lactate level is down to 10 today. Anion gap 27. I will decrease his sodium bicarbonate but I will not change the concentration of the infusion because of his already low serum sodium. cc: Nestor Pike MD
--- NOTE | 2019-02-26 14:07 | PROGRESS NOTE ---
DATE: 02/26/2019 SUBJECTIVE: The patient is currently sedated on the ventilator. He is currently on 15 mcg of Levophed and an Ativan drip. He has bloody aspirate coming from the NGT. OBJECTIVE: Vital Signs: T-max 96.3 degrees, blood pressure 103/51, heart rate 96, respirations 16, O2 saturation is 100% on the mechanical ventilator. Intake 5.1 L. Output 3.5 L. General: This is a chronically ill-appearing elderly male currently sedated on the ventilator. Head: Normocephalic, atraumatic. Skin: The patient has multiple areas of ecchymosis on the arms and legs. Heart: S1, S2 normal. Tachycardic. Lungs: Coarse breath sounds bilaterally. No wheezing. No rales. Abdomen: Positive bowel sounds. Soft, nontender, and nondistended. Extremities: The patient has edema involving the upper extremities. No edema in the lower extremities. Neurologic: The patient is sedated. LABORATORY: White blood cell count 13, hemoglobin 12, hematocrit 35, and platelets 111,000. Sodium 130, potassium 2.6, chloride 82, CO2 21, BUN 23, creatinine 1.4, glucose 116, A1c 4.9, phosphorus 1.8, calcium 7.2, total bilirubin 2.8, direct bilirubin 1.9, AST 229, ALT 100, alkaline phosphatase 62, albumin 2.6, lipase 245 and ProBNP 22110. Chest x-ray shows slight improvement in the left-sided pneumonia. Faint infiltrate in the right lung base. ASSESSMENT AND PLAN: 1. Acute hypoxemic respiratory failure. The patient has pneumonia. Continue with ventilatory support as directed by the mental retardation aide. 2. Status post cardiopulmonary arrest. Continue with supportive care. 3. Bilateral lobe pneumonia. We will continue to follow the cultures. Continue on broad- spectrum antibiotics as directed by Dr. Hdez. 4. Septic shock. Continue with pressor support and antibiotic therapy. 5. Severe lactic acidosis. The patient is currently on a bicarbonate drip. We will continue to monitor this closely. 6. Possible GI bleed. Will continue on Nexium BID. Consult GI. 7. Acute kidney injury. Improved. We will continue to monitor the urine output closely. Nephrology is following. 8. Hypokalemia. We will replace the patient's potassium. 9. Hypophosphatemia. We will replace the patient's phosphorus. 10. Hepatitis C. Aware. 11. Elevated liver function tests. This may represent shock liver. We will continue to monitor the liver function tests closely. 12. History of alcoholism. Aware. 13. Thrombocytopenia. The platelet count is 111,000. We will monitor this closely. 14. Gastrointestinal prophylaxis. Continue on IV Nexium. 15. Deep vein thrombosis prophylaxis. Continue with SCD's. cc: Amara Lopez MD [facility]
--- NOTE | 2019-02-26 18:45 | CARDIOLOGY PROGRESS NOTE ---
DATE: 02/26/2019 SUBJECTIVE: Patient continues sedated on ventilator. He continues on intravenous Levophed for blood pressure support as well as Ativan drip. OBJECTIVE: Blood pressure 76/44, heart rate 118 with ECG showing sinus tachycardia. Oxygen saturation 100%. There is no significant jugular distention.Chest: Auscultation of chest reveals a few rhonchi anteriorly. Cardiac: Regular rate and rhythm without appreciable murmur or gallop. Abdomen: Soft. Bowel sounds are audible. Extremities: Mild edema. LABORATORY DATA: Includes a white blood cell count of 13.84, hematocrit 35.0, hemoglobin 12.2, platelet count 111,000. Sodium 130, potassium 2.6, chloride 82, carbon dioxide 21, BUN 23, creatinine 1.4, glucose 116, albumin 2.6. IMPRESSION: 1. Hypoxemic respiratory failure. 2. Recent sepsis with marked lactic acidosis. 3. Suspected pneumonia. 4. Chronic alcoholism. 5. Acute renal dysfunction. 6. Component of pancreatitis suggested by elevated lipase and amylase. RECOMMENDATIONS: 1. Continue supportive care as you are doing. 2. Continue to treat for suspected pneumonia. 3. No additional suggestions from a cardiovascular standpoint. We will see further on as-needed basis. cc: Baljinder Alex MD
[2019-02-26] MEDS ORDERED: VANCOMYCIN 1,400 MG in NS 250 ML IV SCH (21:00)
[2019-02-27] MEDS: DUONEB (A & A) INH SCH ×6 (03:04→23:35)
[2019-02-27] MEDS: ATIVAN 20 MG in NS 190 ML IV SCH ×2 (03:16→16:10)
[2019-02-27] MEDS: LEVOPHED 8 MG in D5 1/2 NS 250 ML IV SCH ×5 (03:16→20:42)
[2019-02-27] MEDS: NEO-SYNEPHRINE 50 MG in NS 250 ML IV SCH ×4 (03:17→21:27)
[2019-02-27 04:44] LABS: BASO% 5.2 % (0.0-0.8); EOS# 0.06 X1000 (0.0-0.7); EOS% 0.3 % (0.0-10.0); HEMOGLOBIN 9.2 g/dL (14.0-18.0); IMM GRAN# 0.13 X1000 (0.0-0.04); IMM GRAN% 0.7 % (0.0-0.5); LYMPH# 3.67 X1000 (1.2-3.4); LYMPH% 21.1 % (20.5-51.1); MCH 22.9 PG (27-31); MCHC 24.2 g/dL (33-37); MCV 94.5 FL (81-99); MONO# 1.56 X1000 (0.11-0.59); MPV 11.3 FL (7.4-10.4); NEUT# 11.09 X1000 (1.4-6.5); NEUT% 63.7 % (42.2-75.2); PLT 106 X1000 (130-400); RBC 4.02 XMIL (4.7-6.1); RDW 14.2 % (11.5-14.5); WBC 17.41 X1000 (4.8-10.8)
[2019-02-27 04:49] LABS: ALLEN TEST YES; BE -7.7 mmoll (-3.0-3.0); BLOOD TYPE ARTERIAL; HCO3-(ACT) 18.9 mmoll (20.0-26.0); METHB 2.6 % (0.0-1.5); O2(CT) 17.9 mL/dL (15.0-23.0); PCO2(98.6) 21 mmHg (35-45); PO2(98.6) 114 mmHg (60-100); SAMPLE BLOOD; SAO2 98.8 % (95.0-100.0); SRATE 20 BPM; THB 13.3 g/dL (11.5-17.4); TVOL 450 mL; pH(98.6) 7.44 (7.35-7.45)
[2019-02-27 04:50] LABS: MODALITY VENTILATOR
[2019-02-27 05:04] LABS: ALB/GLOB RATIO 0.7; ALBUMIN 2.3 g/dL (3.5-5.0); DIRECT BILIRUBIN 2.4 mg/dL (0.00-0.20); TOTAL BILIRUBIN 3.72 mg/dL (0.20-1.00); TOTAL PROTEIN 5.6 g/dL (6.3-8.3)
[2019-02-27 05:18] LABS: CREATININE 1.7 mg/dL (0.7-1.2); PHOSPHORUS 5.4 mg/dL (2.7-4.5); POTASSIUM 3.9 mmol/L (3.5-5.1)
[2019-02-27] MEDS: MORPHINE IV PRN (05:28)
[2019-02-27] MEDS: HUMULIN R SUBQ SCH ×5 (05:29→21:27)
[2019-02-27 06:03] LABS: CALCIUM 6.4 mg/dL (8.8-10.2)
[2019-02-27] MEDS ORDERED: CALCIUM GLUCONATE 2 GM in NS 100 ML IV ONE (06:12)
[2019-02-27] MEDS: NEXIUM IV SCH ×2 (06:32→21:13)
--- NOTE | 2019-02-27 07:47 | Diag Imaging Result Doc PS360 ---
CHEST-PORTABLE - 02/27/2019 INDICATION: Pneumonia COMPARISON: 02/26/2019 FINDINGS: Support lines and tubes are stable. There is continued decrease in the infiltrate in the left midlung and left lung base. No new infiltrates. Stable patchy infiltrates in the right lung base. Heart size remains normal. IMPRESSION: Improvement in the left-sided infiltrates. Electronically signed by Edwin Layne 02/27/2019 7:45 AM
[2019-02-27] MEDS: ZYVOX 600 MG/D5W 600 MG/300 ML IVPB IV SCH ×2 (07:59→21:13)
[2019-02-27] MEDS: MAXIPIME 1 GM in NS 50 ML IV SCH ×2 (07:59→21:13)
--- NOTE | 2019-02-27 11:00 | GASTROENTEROLOGY CONSULTATION ---
DATE: 02/26/2019 REASON FOR CONSULTATION: Blood in the NG tube. HISTORY OF PRESENT ILLNESS: Mr. Nik Jeffrey is a 58-year-old gentleman with past medical history of alcoholism, hepatitis C, tobacco dependence, folic acid deficiency who presented on 02/25/2019 with acute hypoxic respiratory failure, hypothermia and hypotension concerning for sepsis. He was noted to be confused on presentation with hyponatremia and acute kidney injury. In the field, the patient was intubated, bradycardic and underwent 4-minute code requiring push of atropine and epinephrine. In the ED, he was given IV Lasix and saline bolus and breathing treatment for wheezing. The code occurred in the emergency room. His chest x-ray showed pneumonia. He was started on broad-spectrum antibiotics and found to be severely acidotic with a pH of 6, and a lactate of 15 with numerous electrolyte imbalances and serum alcohol level is 16. The patient was seen by Cardiology in the ICU and started on pressors and propofol drip as well as bicarb drip. Yesterday, he was noted to have some bloody output from his NG tube with a dropping hematocrit from 14.9 to 12.2 in the setting of copious fluid resuscitation. He was net positive of 2 L at the time of evaluation. His platelets are 111 and INR of 1.99, concerning for coagulopathy. The patient is currently sedated, intubated on Levophed. He is currently on an Ativan drip for sedation. REVIEW OF SYSTEMS: Unable to obtain review of systems. PAST MEDICAL HISTORY: Per record, alcohol abuse, tobacco abuse, hepatitis C, COPD. PAST SURGICAL HISTORY: Appendectomy, tonsillectomy. FAMILY HISTORY: Unable to obtain. ALLERGIES: No known drug allergies per record. HOME MEDICATIONS: Unable to obtain. SOCIAL HISTORY: Unable to obtain. PHYSICAL EXAMINATION: Vital signs: Temperature of 99.0 degrees, pulse of 114, respiratory rate 18, blood pressure 78/46, O2 saturation 100% on mechanical ventilation, 70% FiO2. General: The patient is intubated and sedated in no apparent distress. HEENT: There is some muddy sclerae. ET tube in place. Some dark bloody output seen in the NG tube and reservoir. Heart: Tachycardic. No murmurs. Lungs: Vented. Abdomen: Soft, nontender, nondistended. Hypoactive bowel sounds. Extremities: No clubbing, cyanosis, or edema. Neurological: Unable to assess given the patient's sedation. LABORATORY DATA: White count of 13.8, hemoglobin of 12.2, platelets of 111,000, INR of 1.99. ABG with pH of 7.39, pCO2 of 35, pO2 of 67, lactate of 10, sodium 130, potassium of 2.6, chloride 82, bicarb 21, iron gap of 27, BUN of 23, creatinine of 1.4, glucose of 116, calcium 7.2, phosphorus of 1.8, total bilirubin of 2.85, AST of 229, ALT of 100, alkaline phosphatase 62. ProBNP of 15,356, total protein of 5.6, albumin 2.9, lipase of 245 from 463 on admission. Lactate on admission was 15.1. TSH of 1.57. UA shows glucose, ketones, detox negative, serum alcohol of 6. Acute hepatitis panel reactive for HCV antibody. Blood cultures x2 are no growth to date. IMAGING: Chest x-ray on admission shows lingular infiltrate pneumonia. No pleural effusion or pneumothorax. Head CT: No acute disease or change from prior. Echocardiogram unremarkable. EF of 55%. Abdominal ultrasound: Echogenic sludge layering in the gallbladder lumen, but no gallstones identified. Suggestion of hepatic steatosis. The spleen is partially obscured. No ascites. The common bile duct is normal diameter. There is no evidence of gallbladder wall thickening or pericholecystic fluid. ASSESSMENT AND PLAN: Mr. Nik Jeffrey is a 58-year-old gentleman with history of alcoholism and chronic hepatitis C and chronic obstructive pulmonary disease who was admitted with septic shock, found to have multilobar left-sided pneumonia. He is on pressors, intubated and sedated. GI consulted for bloody output from his NG tube and dropping hematocrit. He does have an elevated INR and thrombocytopenia concerning for either DIC or underlying hepatic fibrosis. Ultrasound was negative for obvious portal hypertension or cirrhosis. He is on PPI 40 mg IV b.i.d. n.p.o. and road-spectrum antibiotics per ID. Nephrology and Cardiology are following. Appreciate recommendations. We will plan to continue to trend his H and H and stay on PPI. Avoid blood thinners and Lovenox or subcutaneous heparin. Maintain IV access. Trend hemoglobin and hematocrit every 6 to 8 hours. Transfuse as needed to maintain a hemoglobin greater than 7 or in the setting of active overt bleeding. We will give him some vitamin K IV for coagulopathy. Transfuse platelets to maintain platelet count greater than 50,000. Consider checking a fibrinogen. Other issues: The patient apparently may have a component of alcoholic pancreatitis. His lipase is downtrending. Hypoxic respiratory failure, pulmonary following, appreciate recommendations. Acute kidney injury, slightly improved from yesterday. LFTs show a pattern consistent with alcoholic liver disease with a component of alcoholic hepatitis. The patient is not a candidate for steroids given sepsis. Thank you for this consult. We will follow with you. Please call with any questions or concerns.
[2019-02-27] MEDS ORDERED: EPINEPHRINE SYRINGE ONE (12:17)
--- NOTE | 2019-02-27 12:39 | PROGRESS NOTE ---
DATE: 02/27/2019 SUBJECTIVE: The patient is currently sedated on the ventilator. He is currently maxed out on the Levophed drip. He is now on Teddy-Synephrine at 50 mcg/hour. His urine output has decreased over the last 8 hours, and he is tachycardic. OBJECTIVE: Vital Signs: Temperature 97.7 degrees, blood pressure 94/52, heart rate 122, respirations 16, O2 saturation is 100% on the mechanical ventilator with an FiO2 of 40%. Intake 4.9 L; urine output 100 mL. General: This is a chronically ill-appearing, sedated male on the mechanical ventilator. Head: Normocephalic, atraumatic. Heart: S1, S2 normal. Tachycardic. Lungs: Coarse breath sounds bilaterally. No wheezing. No rales. Abdomen: Hypoactive bowel sounds. Soft. Extremities: The patient has anasarca involving the upper extremities. No edema noted in the lower extremities. Neurologic: The patient is sedated. LABS: White blood cell count 17, hemoglobin 9.2, hematocrit 38, platelets 106. ABG: A pH 7.44, pCO2 21, PO2 112, bicarbonate 18. Sodium 126, potassium 3.9, chloride 76, CO2 15. BUN 26, creatinine 1.7, glucose 166, calcium 6.4, phosphorus 5.4, total bilirubin 3.7, direct bilirubin 2.4. ALT 110, AST 243, alkaline phosphatase 63, albumin 2.3. Cortisol 12.6. X-RAYS: Chest x-ray shows improvement in the left-sided infiltrates. ASSESSMENT AND PLAN: 1. Acute hypoxemic respiratory failure. Continue to treat the underlying pneumonia. Continue with ventilatory support as directed by the vessel scrapper. 2. Status post cardiopulmonary arrest. Aware. Continue with the current treatment regimen. 3. Pneumonia. So far, the sputum and blood cultures remain negative. Continue with broad- spectrum antibiotics as directed by Dr. Hdez. 4. Septic shock. Worse today. The patient is now on the maximum dosage of the Levophed drip and is now on Teddy-Synephrine. Continue with antibiotic therapy. We will continue to follow up the results of the blood and sputum cultures. 5. Severe lactic acidosis. Worse today. The patient is currently on a bicarbonate drip. 6. Possible gastrointestinal bleed. Continue on intravenous Nexium. Gastroenterology is planning on a possible endoscopy soon. 7. Acute kidney injury. The patient's urine output has decreased in the last 12 hours. Also, the BUN and creatinine are slightly elevated. Further management as per the cash grain farmer. 8. Elevated liver function tests. Multifactorial. We will continue to monitor closely. Gastroenterology is following. 9. Hepatitis C. Aware. 10. Thrombocytopenia. The patient's platelet count is a little lower today. This may be secondary to sepsis. We will order the disseminated intravascular coagulation workup. 11. Gastrointestinal prophylaxis. Continue on intravenous Nexium. 12. Alcoholism. Aware. 13. Anemia. We will continue to monitor the hemoglobin and hematocrit closely and transfuse as necessary. 14. Disposition: The patient is critically ill with a high risk of mortality. I had a discussion with the patient's brother, Richard Jeffrey, and informed him about the patient's overall medical condition. He has decided to make the patient a do not resuscitate level 1. We will continue with the current treatment regimen at this time. cc: Amara Lopez MD MTDD
[2019-02-27] MEDS: SOLU-CORTEF IV SCH ×2 (12:57→21:13)
--- NOTE | 2019-02-27 14:01 | OPERATIVE NOTE ---
PROCEDURE DATE: 02/26/2019 PROCEDURE PERFORMED: Esophagogastroduodenoscopy with Endoclip placement. PROVIDER: Ángel Manuel MD INDICATIONS: GI bleed. MEDICATIONS: Ativan drip as per RN. PROCEDURE: Procedure prior to the procedure, a history and physical was performed, and the patient's medications and allergies were reviewed. The patient's tolerance of previous anesthesia was also reviewed. The risks and benefits of the procedure and sedation options and risks were discussed with the patient's family. All questions were answered, and informed consent was obtained. After reviewing the risks and benefits, the patient was deemed in satisfactory condition to undergo the procedure. The endoscope was passed under direct visualization. Throughout the procedure, the patient's blood pressure, pulse, and oxygen saturations were monitored continuously. The endoscope was introduced through the mouth and advanced to the second part of the duodenum. The upper GI endoscopy was accomplished without difficulty. The patient tolerated the procedure. COMPLICATIONS: No immediate complication. ESTIMATED BLOOD LOSS: Minimal. FINDINGS: There was LA grade C to D esophagitis found from the mid to distal esophagus. A visible vessel that was nonbleeding was found at the GE junction located at 40 cm from the incisors. An Endoclip was deployed to prevent recurrent bleeding. The stomach revealed diffuse severe hemorrhagic gastritis. The duodenum revealed severe duodenitis. There was some scant residual bright red blood in the stomach. There was no obvious treatable lesions or ulcers found in the stomach or duodenum. Retroflexion in the stomach revealed a small hiatal hernia. No evidence of gastric or esophageal varices were found. IMPRESSION: LA grade C to D esophagitis, visible vessel within the esophagus, status post hemoclip placement, hemorrhagic gastritis diffusely, severe duodenitis, and small hiatal hernia. RECOMMENDATIONS: Keep n.p.o. Continue PPI IV b.i.d. 40 mg twice a day. Avoid replacement of NG tube, as this could cause the Endoclip in the esophagus to be displaced. Continue to trend hemoglobin and hematocrit every 6 to 8 hours. Transfuse as needed to maintain hemoglobin between 7 or 8 or in the setting of overt bleeding. Avoid blood thinners, NSAIDs. Thank you for this consult. We will follow with you. Please call with any questions or concerns.
[2019-02-27] MEDS: LACRI-LUBE OPH OINT BOTH EYES PRN ×2 (14:45→23:30)
--- NOTE | 2019-02-27 15:07 | NEPHROLOGY PROGRESS NOTE ---
DATE: 02/27/2019 SUBJECTIVE: He remains unresponsive. OBJECTIVE: Vital Signs: Blood pressure 80/47, heart rate 124, respirations 16, afebrile. Intake 5 L, output 600 mL. General: No acute distress. Skin: Warm and dry. Jaundice. HEENT: Conjunctivae are icteric. Pupils are equal. Neck: Neck veins are not appreciated. Heart: Regular, tachycardic. Lungs: Equal. Coarse with rhonchi. Abdomen: Soft. Decreased bowel sounds. Extremities: 3+ edema. No clubbing or cyanosis. IMPRESSION: Acute kidney injury. Low urine output. BUN and creatinine are about the same but significant increase his volume status. Dilutional. Likely has underlying acute kidney injury with low GFR. I spoke with the family who are present, two brothers. They state that he does have 2 children that they are attempting to locate. They understand his grave medical condition and that he has a low likelihood for survival. They are in agreement with a level 1 do not resuscitate order. His lactic acidosis is progressive and his pressor needs arising. Very high mortality risk. cc: Nestor Pike MD
[2019-02-27] MEDS: NS 500 ML IV SCH (17:27)
[2019-02-27] MEDS ORDERED: NS 500 ML ONE (17:29)
[2019-02-27] MEDS: SODIUM BICARBONATE 8.4% 150 MEQ in STERILE WATER INJ. 1,000 ML IV SCH (18:27)
[2019-02-27] MEDS: PITRESSIN 40 UNIT in NS 100 ML IV SCH (20:42)
[2019-02-28] MEDS: NEO-SYNEPHRINE 50 MG in NS 250 ML IV SCH ×10 (00:34→22:18)
[2019-02-28] MEDS: LEVOPHED 8 MG in D5 1/2 NS 250 ML IV SCH ×5 (00:34→19:55)
[2019-02-28] MEDS: HUMULIN R SUBQ SCH ×6 (02:15→21:56)
[2019-02-28] MEDS: DUONEB (A & A) INH SCH ×6 (02:56→23:17)
[2019-02-28 04:53] LABS: ALLEN TEST YES; BE -12.8 mmoll (-3.0-3.0); BLOOD TYPE ARTERIAL; HCO3-(ACT) 14.9 mmoll (20.0-26.0); METHB 1.4 % (0.0-1.5); O2(CT) 18.1 mL/dL (15.0-23.0); PCO2(98.6) 31 mmHg (35-45); PO2(98.6) 133 mmHg (60-100); SAMPLE BLOOD; SAO2 99.9 % (95.0-100.0); SRATE 16 BPM; THB 13.1 g/dL (11.5-17.4); TVOL 450 mL; pH(98.6) 7.24 (7.35-7.45)
[2019-02-28 04:54] LABS: MODALITY VENTILATOR
[2019-02-28 05:35] LABS: HEMATOCRIT 37.9 % (42.0-52.0); HEMOGLOBIN 12.7 g/dL (14.0-18.0); MCH 33.2 PG (27-31); MCHC 33.5 g/dL (33-37); RBC 3.83 XMIL (4.7-6.1); WBC 19.13 X1000 (4.8-10.8)
[2019-02-28] MEDS: SOLU-CORTEF IV SCH ×3 (05:35→21:16)
[2019-02-28 05:36] LABS: BASO# 0.57 X1000 (0.0-0.2); IMM GRAN# 0.11 X1000 (0.0-0.04); IMM GRAN% 0.6 % (0.0-0.5); LYMPH# 3.56 X1000 (1.2-3.4); LYMPH% 18.6 % (20.5-51.1); MONO# 1.31 X1000 (0.11-0.59); MONO% 6.8 % (1.7-9.3); MPV 10.9 FL (7.4-10.4); NEUT# 13.58 X1000 (1.4-6.5); PLT 84 X1000 (130-400); RDW 15.1 % (11.5-14.5)
[2019-02-28 05:42] LABS: INR 2.2; PROTIME 26.1 Seconds (11.0-16.0)
[2019-02-28 05:53] LABS: ALB/GLOB RATIO 0.6; ALBUMIN 1.9 g/dL (3.5-5.0); TOTAL BILIRUBIN 5.01 mg/dL (0.20-1.00); TOTAL PROTEIN 5.2 g/dL (6.3-8.3)
[2019-02-28 05:58] LABS: ALBUMIN 2.1 g/dL (3.5-5.0); CREATININE 2.7 mg/dL (0.7-1.2); PHOSPHORUS 6.9 mg/dL (2.7-4.5); POTASSIUM 4.7 mmol/L (3.5-5.1)
[2019-02-28 06:25] LABS: LYMPHS 8 % (21-51); NRBC 3 % (0-0); SEGS 82 % (42-75)
[2019-02-28 06:40] LABS: CALCIUM 6.1 mg/dL (8.8-10.2)
[2019-02-28] MEDS ORDERED: CALCIUM GLUCONATE 2 GM in NS 100 ML IV ONE (06:44)
--- NOTE | 2019-02-28 07:07 | Diag Imaging Result Doc PS360 ---
EXAM: CHEST-PORTABLE 02/28/2019 HISTORY: Pneumonia TECHNIQUE: AP portable at 0512 COMMENT: There is an endotracheal tube with its tip at thoracic inlet. There is an NG tube the tip of which appears to be at the esophagogastric junction. There is retrocardiac opacity in the left lower lobe and minimal atelectasis over the right hemidiaphragm. Compared to 02/27/2019 the opacification of the left lower lobe has worsened. IMPRESSION: Worsening pneumonia left lower lobe. NG tube in the distal esophagus. Electronically signed by Cristo Rusesll 02/28/2019 7:04 AM
[2019-02-28] MEDS: NEXIUM IV SCH ×2 (07:16→21:16)
[2019-02-28] MEDS: SODIUM CHLORIDE 0.9% INJ SCH (07:16)
[2019-02-28] MEDS: MAXIPIME 1 GM in NS 50 ML IV SCH ×2 (07:17→21:16)
[2019-02-28] MEDS: ZYVOX 600 MG/D5W 600 MG/300 ML IVPB IV SCH ×2 (07:35→21:16)
[2019-02-28] MEDS: PITRESSIN 40 UNIT in NS 100 ML IV SCH ×2 (12:56→23:02)
[2019-02-28] MEDS: NS 500 ML IV SCH (16:47)
--- NOTE | 2019-02-28 17:09 | PROGRESS NOTE ---
DATE: 02/28/2019 SUBJECTIVE: The patient is currently unresponsive on the ventilator. He is off sedation. He is currently maximized out on Levophed and Teddy-Synephrine. A Vasopressin drip was added early this morning. OBJECTIVE: Vital Signs: T-max 98.8 degrees, blood pressure 93/54, heart rate 115, respirations 16, O2 saturation is 99% on the mechanical ventilator. Intake 2.2 L. Urine output 75 mL. General: This is a chronically ill-appearing, elderly male, currently unresponsive on mechanical ventilator. Skin: Multiple areas of ecchymoses on the arms. The upper and lower extremities are cold to touch and swollen. Heart: S1, S2 normal. Tachycardic. Lungs: Coarse breath sounds bilaterally. No wheezing. Abdomen: Hypoactive bowel sounds. Mildly distended. Extremities: Anasarca in both the upper and lower extremities noted. The arms and legs are cold to touch. Neurologic: The patient is unresponsive. The pupils are fixed and dilated. The patient does not respond to painful stimuli. Labs: White blood cell count 19, hemoglobin 12, hematocrit 37, platelets 84,000. INR 2.2. ABG, pH of 7.24, pCO2 of 31, PO2 of 133, bicarb 14, lactate 18. Sodium 128, potassium 4.7, chloride 79, CO2 of 15, BUN 35, creatinine 2.7, glucose 148, calcium 6.1. Total bilirubin 5, direct bilirubin 4, AST 49, ALT 283, alkaline phosphatase 58, albumin 2.1. Chest x-ray shows worsening pneumonia in the left lower lobe. ASSESSMENT AND PLAN: 1. Acute hypoxemic respiratory failure. Continue with ventilatory support as directed by the catheter builder. 2. Status post cardiopulmonary arrest. Aware. Continue with supportive care. 3. Septic shock. The patient is now on three pressors to include Levophed, Teddy- Synephrine, and vasopressin. Continue with antibiotics. So far, the blood and sputum cultures are negative. 4. Severe lactic acidosis. Unchanged. The patient remains on a bicarbonate drip. 5. Volume overload. Aware. 6. Pneumonia. Continue with broad-spectrum antibiotic therapy as directed by Dr. Hdez. 7. Gastrointestinal bleed secondary to esophagitis and severe hemorrhagic gastritis. Continue on intravenous Nexium. 8. Shock liver. The patient's liver enzymes are worse today. Continue with supportive care. 9. Coagulopathy. The INR is up to 2.2. We will monitor closely. The patient may require some vitamin K. 10. Hepatitis C. Aware. 11. Acute kidney injury. The patient has only put out 195 mL of urine in the last 8 hours. Further management as per the steam hoist operator. 12. Thrombocytopenia. Worse today. This is likely secondary to sepsis. Continue to monitor. 13. Hyponatremia. Unchanged. 14. Alcoholism. Aware. 15. Hepatitis C. Aware. 15. Disposition. The patient is critically ill with a high risk of mortality. The patient is currently a DNR level 1. We will consult palliative care to assist with goals of care. cc: Amara Lopez MD MTDD
[2019-02-28] MEDS: SODIUM BICARBONATE 8.4% 150 MEQ in STERILE WATER INJ. 1,000 ML IV SCH (17:58)
--- NOTE | 2019-02-28 22:32 | PROVIDER PROGRESS NOTE ---
Progress Note S: Patient stared on vasopressin overnight. He is maxed out on triple pressors. Comatose off pressors. No rectal bleeding or hematemesis. O: Last Vital Signs Temp 98.8 F 02/28/19 20:00 Pulse 112 H 02/28/19 22:16 Resp 16 02/28/19 20:00 BP 87/43 02/28/19 22:16 Pulse Ox 95 02/28/19 22:16 Height 6 ft Weight 185 lb 11.2 oz GEN: comatose HEENT: dilated pupils NECK: supple PULM: decreased BS, vented CV: tachycardic, regular ABD: distended, hypoactive BS, NT EXT: no cce NEURO: unresponsive, off sedation LABS: 02/28/19 02/28/19 02/28/19 04:20 04:20 04:20 WBC 19.13 H Hgb 12.7 L D Plt Count 84 L INR 2.20 pH pCO2 pO2 Sodium Potassium Chloride Carbon Dioxide Anion Gap BUN Creatinine Glucose Calcium Phosphorus Total Bilirubin 5.01 H Direct Bilirubin 4.00 H AST 849 H ALT 283 H Alkaline Phosphatase 58 Total Protein 5.2 L 02/28/19 02/28/19 04:20 04:45 WBC Hgb Plt Count INR pH 7.24 L pCO2 31 L pO2 133 H Sodium 128 L Potassium 4.7 D Chloride 79 L Carbon Dioxide 15 L Anion Gap 34 BUN 35 H Creatinine 2.7 H Glucose 148 H Calcium 6.1 L* Phosphorus 6.9 H Total Bilirubin Direct Bilirubin AST ALT Alkaline Phosphatase Total Protein EGD 02/27 IMPRESSION: LA grade C to D esophagitis, visible vessel within the esophagus, status post hemoclip placement, hemorrhagic gastritis diffusely, severe duodenitis, and small hiatal hernia. ASSESSMENT AND PLAN: Mr. Nik Jeffrey is a 58-year-old gentleman with alcoholism and chronic hepatitis C, COPD who was admitted with septic shock found to have multilobar left-sided pneumonia. GI consulted for bloody output from NGT. EGD yesterday showed visible non-bleeding vessel at GEJ s/p hemoclip, hemorrhagic gastritis and duodenitis likely from ischemia. Hgb is stable. He is maxed out on pressors with worsening leukocytosis, acidosis, ischemic liver injury, and persistent coma. Recommend continued end of life discussions with family. RECOMMENDATIONS: - Keep NPO - Continue PPI 40mg IV BID - avoid NGT placement given esophageal hemoclip - transfuse prn for goal hgb 7-8 - trending CBC, LFTs, INR Prognosis dismal. Please call with any questions or concerns.
[2019-02-28] MEDS: LACRI-LUBE OPH OINT BOTH EYES PRN (23:09)
[2019-03-01] MEDS: LEVOPHED 8 MG in D5 1/2 NS 250 ML IV SCH ×4 (00:03→11:48)
[2019-03-01] MEDS: NEO-SYNEPHRINE 50 MG in NS 250 ML IV SCH (00:56)
[2019-03-01] MEDS: HUMULIN R SUBQ SCH ×3 (01:41→10:16)
[2019-03-01] MEDS: NEO-SYNEPHRINE 100 MG in NS 500 ML IV SCH ×3 (03:05→11:48)
[2019-03-01] MEDS: DUONEB (A & A) INH SCH ×3 (03:21→11:21)
[2019-03-01] MEDS: SOLU-CORTEF IV SCH ×2 (04:24→11:14)
[2019-03-01 04:29] LABS: ALLEN TEST YES; BE -14.5 mmoll (-3.0-3.0); BLOOD TYPE ARTERIAL; HCO3-(ACT) 13.6 mmoll (20.0-26.0); METHB 0.9 % (0.0-1.5); O2(CT) 17.1 mL/dL (15.0-23.0); O2HB 95.8 % (95.0-99.0); PCO2(98.6) 48 mmHg (35-45); PO2(98.6) 97 mmHg (60-100); SAMPLE BLOOD; SAO2 98.3 % (95.0-100.0); SRATE 16 BPM; THB 12.6 g/dL (11.5-17.4); TVOL 450 mL
[2019-03-01 04:31] LABS: MODALITY VENTILATOR
[2019-03-01] MEDS ORDERED: SODIUM BICARBONATE 8.4% IV PUSH ONE (05:57)
[2019-03-01 06:01] LABS: ALB/GLOB RATIO 0.6; ALBUMIN 1.6 g/dL (3.5-5.0); DIRECT BILIRUBIN 4.2 mg/dL (0.00-0.20); TOTAL BILIRUBIN 5.68 mg/dL (0.20-1.00); TOTAL PROTEIN 4.4 g/dL (6.3-8.3)
[2019-03-01 06:03] LABS: CREATININE 3.2 mg/dL (0.7-1.2); PHOSPHORUS 8.4 mg/dL (2.7-4.5); POTASSIUM 5.2 mmol/L (3.5-5.1)
[2019-03-01 06:04] LABS: CALCIUM 5.2 mg/dL (8.8-10.2)
[2019-03-01] MEDS ORDERED: CALCIUM GLUCONATE 2 GM in NS 100 ML IV ONE (06:16)
[2019-03-01] MEDS: PITRESSIN 40 UNIT in NS 100 ML IV SCH (07:12)
--- NOTE | 2019-03-01 07:12 | Diag Imaging Result Doc PS360 ---
EXAM: CHEST-PORTABLE INDICATION: Pneumonia TECHNIQUE: One view COMPARISON: 02/28/2019 FINDINGS: ET tube is in stable position. The left lower lobe retrocardiac opacity is approximately stable. There is increasing opacity at the right lung base that probably represents a small effusion. No other new consolidation is identified. Cardiac silhouette is stable. IMPRESSION: Slight increased opacity at the right lung base suggesting a likely small effusion. Stable chest, otherwise. Electronically signed by Chris Parry 03/01/2019 7:10 AM
[2019-03-01] MEDS: MAXIPIME 1 GM in NS 50 ML IV SCH (08:36)
[2019-03-01] MEDS: ZYVOX 600 MG/D5W 600 MG/300 ML IVPB IV SCH (08:36)
[2019-03-01] MEDS: NEXIUM IV SCH (08:36)
[2019-03-01 09:10] LABS: INR 2.6; PROTIME 29.7 Seconds (11.0-16.0)
[2019-03-01 09:18] LABS: BASO# 0.32 X1000 (0.0-0.2); BASO% 1.7 % (0.0-0.8); HEMATOCRIT 36.2 % (42.0-52.0); HEMOGLOBIN 11.7 g/dL (14.0-18.0); IMM GRAN# 0.14 X1000 (0.0-0.04); IMM GRAN% 0.8 % (0.0-0.5); LYMPH# 2.46 X1000 (1.2-3.4); LYMPH% 13.3 % (20.5-51.1); MCH 33.1 PG (27-31); MCHC 32.3 g/dL (33-37); MCV 102.5 FL (81-99); MONO% 5.9 % (1.7-9.3); MPV 11.9 FL (7.4-10.4); NEUT# 14.52 X1000 (1.4-6.5); NEUT% 78.3 % (42.2-75.2); PLT 36 X1000 (130-400); RBC 3.53 XMIL (4.7-6.1); RDW 15.7 % (11.5-14.5); WBC 18.54 X1000 (4.8-10.8)
[2019-03-01] MEDS ORDERED: D50W SYRINGE IV ONE (10:26)
[2019-03-01] MEDS ORDERED: ATIVAN IV PRN (10:41)
[2019-03-01 10:52] LABS: BANDS 9 % (0-1); LYMPHS 8 % (21-51); MONO 2 % (1-9); NRBC 12 % (0-0)
[2019-03-01] MEDS ORDERED: D50W SYRINGE IV PRN (10:58)
[2019-03-01 11:01] LABS: SEGS 81 % (42-75)
[2019-03-01] MEDS ORDERED: MORPHINE IV PRN (13:02)
[2019-03-01] MEDS ORDERED: ATROPINE 1 % OPHTH SOLN SL PRN (13:06)
[2019-03-01] MEDS ORDERED: TRANSDERM-SCOP TD SCH (13:15)
[2019-03-01 14:28] VITALS: BP 96/38
--- NOTE | 2019-03-01 17:47 | GASTROENTEROLOGY PROGRESS NOTE ---
DATE: 03/01/2019 SUBJECTIVE: Resting in bed. He is intubated, on ventilator, on pressors. The patient is nonresponsive. I spoke with the patient's nurse. The patient has been on IV fluids and IV Levophed, Teddy-Synephrine, and IV vasopressin. OUTPUT: His urine output is about 170 mL for today. OBJECTIVE: Vital Signs: Temperature 96.8 degrees, pulse rate 107, respiratory rate 18, blood pressure 92/39, saturating 94% on mechanical ventilator, FiO2 of 100%. General appearance: Moderately built, moderately nourished. Lying in bed, intubated, on ventilator. On pressors support. He is nonresponsive. HEENT: Positive ET tube. Positive NG tube. Positive icterus. Neck: Supple. Abdomen is protuberant, mild distension. No guarding or rebound. Extremities: No cyanosis, clubbing. He has mottling of the skin of the lower extremities, suggesting vasoconstriction. Neurological: He is nonresponsive. DIAGNOSTIC STUDIES: Hemoglobin 11.7, hematocrit 36.2, white count of 18.54, platelet count of 36,000. INR 2.6, PT 29.7. ABG showing pH 7.10, pCO2 of 48, PO2 of 97, lactate 15, this is on 100% FiO2, potassium 5.2, chloride 80, bicarbonate 13, anion gap 31, BUN 46, creatinine 3.2, glucose 88, calcium 5.2, phosphorus 8.4. Total bilirubin is 5.68, direct of 4.28, AST 1113, ALT 394, alkaline phosphatase 62, total protein 4.4, albumin 1.6. Hepatitis panel is reactive to hepatitis C. PCR has been ordered. Blood culture x2 negative at 48 hours from 02/25/2019. Urine culture from 02/25/2019: 2+ white cells, normal mamie. Chest x-ray done today showing slight increased opacity of right lung base suggesting likely small effusions, small chest otherwise. IMPRESSION AND PLAN: 1. Alcoholism and chronic hepatitis C. Continue to watch the liver enzymes. We will follow up the hepatitis C PCR. 2. Septic shock secondary to multilobar left-sided pneumonia. He is on broad- spectrum antibiotics. 3. Lactic acidosis. This could be secondary to sepsis or it could be from small bowel ischemia. We want get a CT scan, but the patient is very unstable to go down for imaging. The patient is on 3-pressor support. His lactate is more than 15. 4. EGD done on 02/27/2019 showed visible nonbleeding vessel at GE junction status hemoclip placement and hemorrhagic gastritis and duodenitis likely from ischemia. 5. Ischemic liver injury. Continue to watch liver enzymes. 6. Severe metabolic acidosis. Aware. 7. Gastrointestinal prophylaxis with proton pump inhibitors. 8. Status post cardiopulmonary arrest. Aware. 9. Coagulopathy. Continue to watch the INR. 10. Acute kidney injury. Continue to watch creatinine. 11. Thrombocytopenia, likely secondary to sepsis or antibiotic. Continue to watch. DISPOSITION: The patient is critically ill. He is Do Not Resuscitate level 1. We will continue to watch him closely. The above plans were discussed with the patient's nurse at bedside, and all questions were answered. Please call us with any further questions. cc: MD Amara Oliva MD [facility]
--- NOTE | 2019-03-01 18:25 | NEPHROLOGY PROGRESS NOTE ---
DATE: 03/01/2019 Time seen 7:25. SUBJECTIVE: Patient remains unresponsive mechanically ventilated. OBJECTIVE: Vital Signs: Temperature 99 degrees, pulse 110, respiratory rate 18, blood pressure 103/34 with pressor support. Intake 6.1 L. Output 170 mL. PHYSICAL EXAMINATION: General: Critically ill-appearing gentleman resting in bed. Currently mechanically ventilated. HEENT: Normocephalic, atraumatic. His eyes are taped shut. He has scleral edema. Oral mucosa is dry. Orally intubated. Neck: Supple. Unable to determine JVD. Cardiovascular: Tachycardic. Pulmonary: Coarse breath sounds bilaterally. Remains mechanically ventilated. Abdomen: Distended. Decreased bowel sounds. Genitourinary: Dupont catheter, dark scant urine. Extremities: 3+ upper and lower extremity edema. He has dependent edema to the back and backs of the thighs and hips. His toes, his knees and tips of fingers are all blackish purple and cool. Integumentary: Appears somewhat jaundiced. He has multiple areas of ecchymosis and weeping noted from edema. LABORATORY DATA: Potassium 5.2, CO2 13, creatinine 3.2. ASSESSMENT AND PLAN: Acute kidney injury. Continues with fluid volume overload. Again patient's current status would likely not tolerate dialysis if that were to be warranted. We will await further decisions by the family as far as proceeding with aggressive measures. Unlikely that any additional measures would change the outcome of this gentleman. Dictated by MARISSA Garcia for Nestor Pike MD Face to face encounter, data reviewed, discussed with Carlos Lovelace on 03/01/19. I agree with the above assessment and plan of care. cc: Nestor Pike MD [facility]
[2019-03-02 10:31] LABS: HCV BY PCR SEE COMMENTS
== END 2019-03-01 13:47 | disposition expired | DRG 870 ==
LOC: ED 03:05 → ICU 08:42
PROVIDERS: ATTEND Internal Medicine
CPT/HCPCS: 31500; 51702; 70450; 71010; 71045; 76700; 80048; 80053; 80069; 80074; 80076; 80101; 80196; 80301; 80307; 80320; 80324; 80329; 80345; 80346; 80353; 80358; 80361; 80365; 81001; 82003; 82009; 82055; 82140; 82150; 82533; 82550; 82553; 82570; 82693; 82805; 82948; 83036; 83605; 83690; 83880; 83930; 83935; 83992; 84100; 84156; 84300; 84443; 84484; 84540; 85025; 85379; 85384; 85610; 85730; 87040; 87070; 87205; 87522; 92950; 93005; 93306; 94002; 94003; 94640; 94761; 94762; 96365; 96366; 96368; 96375; 99285; 99291; A9270; G0431; G0434; G0479; G0480; G6038; G6039; G6040; J0132; J0171; J0330; J0461; J0610; J0692; J1644; J1720; J1815; J1940; J2020; J2060; J2270; J2370; J2930; J3370; J7030; J7040; J7050; J7060; J7070; XXXXX